=== PATIENT | male | born 1965 | race Hispanic/Latino ===

== ENCOUNTER 2019-03-19 19:38 | Observation (INO) | payer SELFPAY ==
[2019-03-19 20:38] LABS: Absolute Lymphocytes (CBC) 1.8 K/uL (0.7-4.9); Basophils % 0.2 % (0-1.3); Hematocrit 45.8 % (39.6-49.0); Lymphocytes % 16.4 % (15.3-44.8); MPV 10.3 fL (7.6-11.3); RBC Red Blood Cell Count 4.99 M/uL (4.33-5.43)
--- NOTE | 2019-03-19 20:38 | RAD REPORT ---
EXAM DESCRIPTION: RAD - Chest Single View - 03/19/2019 8:29 pm CLINICAL HISTORY: CHEST PAIN Chest pain. COMPARISON: No comparisons FINDINGS: Portable technique limits examination quality. The lungs are grossly clear. The heart is normal in size. No displaced fractures. IMPRESSION: No acute intrathoracic process suspected.
[2019-03-19 20:39] LABS: Protime INR 1.05
[2019-03-19] MEDS ORDERED: ASPIRIN 81 MG CHEWABLE TABLET ONE (20:41)
[2019-03-19 20:53] LABS: ALT/SGPT 77 U/L (12-78); AST/SGOT 40 U/L (15-37); Albumin 4.5 g/dL (3.4-5.0); Alkaline Phosphatase 73 U/L (45-117); BUN Blood Urea Nitrogen 14 mg/dL (7-18); Bicarbonate 25 mmol/L (21-32); Bilirubin Direct 0.1 mg/dL (0-0.2); Bilirubin Total 0.6 mg/dL (0.2-1.0); Glucose Level 105 mg/dL (74-106); Magnesium 2.2 mg/dL (1.8-2.4); NT PRO-BNP 11 pg/mL (<125); Protein, Total 8.2 g/dL (6.4-8.2); Sodium Level 141 mmol/L (136-145); Troponin (Emerg Dept Use Only) < 0.02 ng/mL (0.0-0.045)
[2019-03-19] MEDS ORDERED: NITROGLYCERIN 0.4 MG/TAB SL ONE (21:56)
--- NOTE | 2019-03-19 22:46 | EDPHYS ---
Physician Documentation [facility] Name: Jin Schmidt Age: 53 yrs Sex: Male : 1965 Arrival Date: 03/19/2019 Time: 19:41 Bed 7 Private MD: ED Physician Paulo Kaiser HPI: 03/19 20:10 This 53 yrs old Male presents to ER via Ambulatory with complaints of High cp Blood Pressure. 20:10 The patient or guardian reports chest pain that is located primarily in the anterior cp chest wall, left. 20:10 Onset: today, while at work. cp 20:10 The pain does not radiate. Associated signs and symptoms: Pertinent negatives: cp abdominal pain, diaphoresis, dizziness, lower extremity pain, lower extremity swelling, shortness of breath, syncope, vomiting. Duration: The patient or guardian reports a single episode, that is still ongoing, and unchanged. Severity of pain: in the emergency department the pain is a 5 / 10. Historical: - Allergies: 19:51 No Known Allergies; aj1 - Home Meds: 19:51 Enalapril Oral [Active]; aj1 - PMHx: 19:51 Hypertension; aj1 - Immunization history:: Flu vaccine is not up to date. - Social history:: Smoking status: Patient/guardian denies using tobacco. - Ebola Screening: : Patient denies travel to an Ebola-affected area in the 21 days before illness onset. ROS: 20:15 Constitutional: Negative for body aches, chills, fever, poor PO intake. cp 20:15 Eyes: Negative for injury, pain, redness, and discharge. cp 20:15 ENT: Negative for drainage from ear(s), ear pain, sore throat, difficulty swallowing, difficulty handling secretions. 20:15 Cardiovascular: Positive for chest pain, of the left side of chest, Negative for edema, palpitations. 20:15 Respiratory: Negative for cough, shortness of breath, wheezing. 20:15 Abdomen/GI: Negative for abdominal pain, nausea, vomiting, and diarrhea, black/tarry stool, rectal bleeding. 20:15 Back: Negative for pain at rest, pain with movement, radiated pain. 20:15 : Negative for urinary symptoms. 20:15 Skin: Negative for rash. 20:15 Neuro: Negative for altered mental status, headache, syncope, weakness. 20:15 All other systems are negative. Exam: 20:22 Constitutional: The patient appears in no acute distress, alert, awake, cp non-diaphoretic, non-toxic, well developed, well nourished. 20:22 Head/Face: Normocephalic, atraumatic. cp 20:22 Eyes: Periorbital structures: appear normal, Conjunctiva: normal, no exudate, no injection, Sclera: no appreciated abnormality, Lids and lashes: appear normal, bilaterally. 20:22 ENT: External ear(s): are unremarkable, Nose: is normal, Mouth: is normal, Posterior pharynx: is normal, airway is patent, no erythema, no exudate. 20:22 Neck: ROM/movement: is normal, is supple, without pain, no range of motions limitations, no nuchal rigidity. 20:22 Chest/axilla: Inspection: normal, Palpation: is normal, no crepitus, no tenderness. 20:22 Cardiovascular: Rate: tachycardic, Rhythm: regular, Pulses: Pulses are 2+ in right radial artery and left radial artery. Heart sounds: murmur, not appreciated, rub, not appreciated, gallop, not appreciated, Edema: is not appreciated, JVD: is not appreciated. 20:22 Respiratory: the patient does not display signs of respiratory distress, Respirations: normal, no use of accessory muscles, no retractions, no splinting, no tachypnea, labored breathing, is not present, Breath sounds: are clear throughout, no decreased breath sounds, no stridor, no wheezing. 20:22 Abdomen/GI: Inspection: abdomen appears normal, Bowel sounds: active, all quadrants, Palpation: abdomen is soft and non-tender, in all quadrants, rebound tenderness, is not appreciated, voluntary guarding, is not appreciated, involuntary guarding, is not appreciated. 20:22 Back: pain, is absent, ROM is normal. 20:22 Skin: no rash present. 20:22 Neuro: Orientation: to person, place \T\ time. Mentation: is normal, Cerebellar function: is grossly normal, Motor: moves all fours, strength is normal, Sensation: is normal. 20:45 ECG was reviewed by the Attending Physician. cp Vital Signs: 19:51 BP 140 / 77; Pulse 101; Resp 20; Temp 98.9; Pulse Ox 98% on R/A; Weight 81.65 kg (R); aj1 Height 5 ft. 4 in. (162.56 cm) (R); Pain 5/10; 21:05 BP 139 / 93; Pulse 97; Resp 19 S; Pulse Ox 97% on R/A; Pain 5/10; jd3 21:43 BP 143 / 94; Pulse 90; Resp 18 S; Pulse Ox 97% on R/A; Pain 7/10; jd3 23:09 BP 135 / 93; Pulse 82; Resp 17 S; Pulse Ox 97% on R/A; Pain 4/10; jd3 03/20 01:05 BP 118 / 77; Pulse 69; Resp 16 S; Pulse Ox 95% on R/A; Pain 0/10; jd3 03/19 19:51 Body Mass Index 30.90 (81.65 kg, 162.56 cm) aj1 MDM: 03/19 20:02 Patient medically screened. cp 22:37 HEART Score: History: Moderately Suspicious (1), ECG: Normal (0), Age: > 45 and < 65 cp years (1), Risk Factors: 1 or 2 risk factors (1), [Hypertension] Troponin: < or = 1 x Normal Limit (0). 22:43 Counseling: I had a detailed discussion with the patient and/or guardian regarding: the cp historical points, exam findings, and any diagnostic results supporting the discharge/admit diagnosis, lab results, radiology results. Physician consultation: Leydi Vanegas MD was called at 22:44, was contacted at 22:44, regarding admission, to the telemetry unit. patient's condition. 22:45 The patient was given aspirin in the Emergency Department. cp 22:45 Differential diagnosis: abnormal EKG, acute myocardial infarction, chest wall pain, cp pleurisy, pneumonia, pneumothorax. Data reviewed: vital signs, nurses notes, lab test result(s), EKG, radiologic studies, plain films. Test interpretation: by ED physician or midlevel provider: ECG, plain radiologic studies. 03/19 20:03 Order name: Basic Metabolic Panel; Complete Time: 21:38 cp 03/19 22:35 Interpretation: GFR 76. cp 03/19 20:03 Order name: CBC with Diff; Complete Time: 21:38 cp 03/19 22:33 Interpretation: Normal except: WBC 11.0; LOUIS% 76.9; NEUT A 8.5. cp 03/19 20:03 Order name: LFT's; Complete Time: 21:38 cp 03/19 22:33 Interpretation: Normal except: AST 40; GLOB 3.7. cp 03/19 20:03 Order name: Magnesium; Complete Time: 21:38 cp 03/19 20:03 Order name: NT PRO-BNP; Complete Time: 21:38 cp 03/19 20:03 Order name: PT-INR; Complete Time: 21:38 cp 03/19 20:03 Order name: Troponin (emerg Dept Use Only); Complete Time: 21:38 cp 03/19 20:03 Order name: XRAY Chest (1 view); Complete Time: 21:38 cp 03/20 00:16 Order name: Echo with Doppler EDNV 03/20 00:16 Order name: Lipid Profile [facility] 03/20 00:16 Order name: Troponin I [facility] 03/19 20:03 Order name: EKG; Complete Time: 20:05 cp 03/19 20:03 Order name: Cardiac monitoring; Complete Time: 20:34 cp 03/19 20:03 Order name: EKG - Nurse/Tech; Complete Time: 20:34 cp 03/19 20:03 Order name: IV Saline Lock; Complete Time: 20:30 cp 03/19 20:03 Order name: Labs collected and sent; Complete Time: 20:30 cp 03/19 20:03 Order name: O2 Per Protocol; Complete Time: 20:04 cp 03/19 20:03 Order name: O2 Sat Monitoring; Complete Time: 20:04 cp 03/20 00:16 Order name: Heart Healthy EDNV 03/20 00:16 Order name: EKG Electrocardiogram EDNV 03/20 00:16 Order name: EKG Electrocardiogram EDMS EC:45 Rate is 88 beats/min. Rhythm is regular. NH interval is normal. QRS interval is cp prolonged at 108 msec. QT interval is normal. T waves are Inverted in lead III. Interpreted by me. Reviewed by me. Administered Medications: 20:28 Drug: Aspirin Chewable Tablet 324 mg {Note: pt reported taking 0.5 tablet of a chewable jd3 aspirin. pt medicated wiht 3.5 tabs of chewable aspirin per provider's order..} Route: PO; 21:25 Follow up: Response: No adverse reaction jd3 21:43 Drug: Nitroglycerin 0.4 mg Route: Sublingual; jd3 22:40 Follow up: Response: No adverse reaction jd3 22:51 Drug: fentaNYL (PF) 25 mcg Route: IVP; Site: right antecubital; jd3 23:50 Follow up: Response: No adverse reaction jd3 Disposition: 03/20 05:58 Co-signature as Attending Physician, Paulo Kaiser MD I agree with the assessment and kdr plan of care. Disposition: 03/19/19 22:46 Hospitalization ordered by Leydi Vanegas for Observation. Preliminary diagnosis is Chest pain, unspecified. - Bed requested for Telemetry/MedSurg (observation). - Status is Observation. rv - Condition is Stable. - Problem is new. - Symptoms have improved. UTI on Admission? No Signatures: Dispatcher [employer] EDMS Suzette Pardo RN RN ajPaulo Dove MD MD kdr Melinda Parmar RN RN bb Cory Luna PA PA cp Shamar Hyatt RN RN jZaheer Seth RN RN rv Corrections: (The following items were deleted from the chart) 03/19 22:33 21:38 Normal except: WBC 11.0. cp cp 03/20 00:37 03/19 22:46 Hospitalization Ordered by Leydi Vanegas MD for Observation. Preliminary bb diagnosis is Chest pain, unspecified. Bed requested for Telemetry/MedSurg (observation). Status is Observation. Condition is Stable. Problem is new. Symptoms have improved. UTI on Admission? No. cp 03/20 01:30 00:37 03/19/2019 22:46 Hospitalization Ordered by Leydi Vanegas MD for Observation. rv Preliminary diagnosis is Chest pain, unspecified. Bed requested for Telemetry/MedSurg (observation). Status is Observation. Condition is Stable. Problem is new. Symptoms have improved. UTI on Admission? No. bb
--- NOTE | 2019-03-19 22:46 | ER ---
Nurse's Notes [facility] Name: Jin Schmidt Age: 53 yrs Sex: Male : 1965 Arrival Date: 03/19/2019 Time: 19:41 Bed 7 Private MD: Diagnosis: Chest pain, unspecified Presentation: 03/19 19:50 Presenting complaint: Friend states: "He was at work and he said that he felt like his aj1 blood pressure was high, so we took him to the clinic, they said his blood pressure was high and asked us to take him to the ER". Transition of care: patient was not received from another setting of care. Onset of symptoms was March 19, 2019. Risk Assessment: Do you want to hurt yourself or someone else? Patient reports no desire to harm self or others. Initial Sepsis Screen: Does the patient meet any 2 criteria? No. Patient's initial sepsis screen is negative. Does the patient have a suspected source of infection? No. Patient's initial sepsis screen is negative. Care prior to arrival: None. 19:50 Method Of Arrival: Ambulatory aj 19:50 Acuity: COLT 3 aj1 Triage Assessment: 19:51 General: Appears in no apparent distress. uncomfortable, Behavior is calm, cooperative, aj1 appropriate for age. Pain: Complains of pain in chest Pain currently is 5 out of 10 on a pain scale. Neuro: Level of Consciousness is awake, alert, obeys commands. Cardiovascular: Patient's skin is warm and dry. Respiratory: Airway is patent Respiratory effort is even, unlabored, Respiratory pattern is regular, symmetrical. Historical: - Allergies: 19:51 No Known Allergies; aj1 - Home Meds: 19:51 Enalapril Oral [Active]; aj1 - PMHx: 19:51 Hypertension; aj1 - Immunization history:: Flu vaccine is not up to date. - Social history:: Smoking status: Patient/guardian denies using tobacco. - Ebola Screening: : Patient denies travel to an Ebola-affected area in the 21 days before illness onset. Screenin:33 Abuse screen: Denies threats or abuse. Nutritional screening: No deficits noted. jd3 Tuberculosis screening: No symptoms or risk factors identified. Fall Risk IV access (20 points). Ambulatory Aid- None/Bed Rest/Nurse Assist (0 pts). Gait- Normal/Bed Rest/Wheelchair (0 pts) Mental Status- Oriented to own ability (0 pts). Total Veloz Fall Scale indicates No Risk (0-24 pts). Assessment: 20:30 General: Appears in no apparent distress. uncomfortable, Behavior is calm, cooperative, jd3 appropriate for age. Pain: Complains of pain in chest Pain does not radiate. Quality of pain is described as heavy, pressure, Is continuous. Neuro: Level of Consciousness is awake, alert, obeys commands, Oriented to person, place, time, situation. Cardiovascular: Reports chest pain, Heart tones S1 S2 present Capillary refill < 3 seconds Patient's skin is warm and dry. Rhythm is. Respiratory: Airway is patent Respiratory effort is even, unlabored, Respiratory pattern is regular, symmetrical, Breath sounds are clear bilaterally. Denies cough, shortness of breath. GI: No signs and/or symptoms were reported involving the gastrointestinal system. : No signs and/or symptoms were reported regarding the genitourinary system. EENT: No signs and/or symptoms were reported regarding the EENT system. Derm: Skin is intact, Skin is dry, Skin is normal, Skin temperature is warm. Musculoskeletal: Circulation, motion, and sensation intact. Range of motion: intact in all extremities. 21:05 Reassessment: Patient appears in no apparent distress at this time. Patient and/or jd3 family updated on plan of care and expected duration. Pain level reassessed. Patient is alert, oriented x 3, equal unlabored respirations, skin warm/dry/pink. 21:43 Reassessment: Patient appears in no apparent distress at this time. No changes from jd3 previously documented assessment. Patient and/or family updated on plan of care and expected duration. Pain level reassessed. Patient is alert, oriented x 3, equal unlabored respirations, skin warm/dry/pink. 23:09 Reassessment: Patient appears in no apparent distress at this time. Patient and/or jd3 family updated on plan of care and expected duration. Pain level reassessed. Patient is alert, oriented x 3, equal unlabored respirations, skin warm/dry/pink. Patient states feeling better. 03/20 00:00 Reassessment: Patient appears in no apparent distress at this time. No changes from jd3 previously documented assessment. Patient and/or family updated on plan of care and expected duration. Pain level reassessed. Patient is alert, oriented x 3, equal unlabored respirations, skin warm/dry/pink. 01:00 Reassessment: Patient appears in no apparent distress at this time. No changes from jd3 previously documented assessment. Patient and/or family updated on plan of care and expected duration. Pain level reassessed. Patient is alert, oriented x 3, equal unlabored respirations, skin warm/dry/pink. report given to Arelis CACERES. Vital Signs: 03/19 19:51 BP 140 / 77; Pulse 101; Resp 20; Temp 98.9; Pulse Ox 98% on R/A; Weight 81.65 kg (R); aj1 Height 5 ft. 4 in. (162.56 cm) (R); Pain 5/10; 21:05 BP 139 / 93; Pulse 97; Resp 19 S; Pulse Ox 97% on R/A; Pain 5/10; jd3 21:43 BP 143 / 94; Pulse 90; Resp 18 S; Pulse Ox 97% on R/A; Pain 7/10; jd3 23:09 BP 135 / 93; Pulse 82; Resp 17 S; Pulse Ox 97% on R/A; Pain 4/10; jd3 03/20 01:05 BP 118 / 77; Pulse 69; Resp 16 S; Pulse Ox 95% on R/A; Pain 0/10; jd3 03/19 19:51 Body Mass Index 30.90 (81.65 kg, 162.56 cm) aj1 ED Course: 03/19 19:41 Patient arrived in ED. es 19:46 Cory Luna PA is PHCP. cp 19:46 Paulo Kaiser MD is Attending Physician. cp 19:51 Triage completed. aj1 19:51 Arm band placed on Patient placed in an exam room. aj1 20:02 Shamar Hyatt, MORRIS is Primary Nurse. jd3 20:20 Inserted saline lock: 20 gauge in right antecubital area, using aseptic technique. jd3 Blood collected. 20:29 XRAY Chest (1 view) In Process Unspecified. EDMS 20:34 Patient has correct armband on for positive identification. Placed in gown. Bed in low jd3 position. Call light in reach. Side rails up X 1. Adult w/ patient. 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 Pulse ox on. NIBP on. jd3 20:40 EKG done, by ED staff, reviewed by Cory SHAFER. jp3 22:46 Leydi Vanegas MD is Hospitalizing Provider. 03/20 01:01 No provider procedures requiring assistance completed. Patient did not have IV access jd3 during this emergency room visit. Administered Medications: 03/19 20:28 Drug: Aspirin Chewable Tablet 324 mg {Note: pt reported taking 0.5 tablet of a chewable jd3 aspirin. pt medicated wiht 3.5 tabs of chewable aspirin per provider's order..} Route: PO; 21:25 Follow up: Response: No adverse reaction jd3 21:43 Drug: Nitroglycerin 0.4 mg Route: Sublingual; jd3 22:40 Follow up: Response: No adverse reaction jd3 22:51 Drug: fentaNYL (PF) 25 mcg Route: IVP; Site: right antecubital; jd3 23:50 Follow up: Response: No adverse reaction jd3 Outcome: 22:46 Decision to Hospitalize by Provider. 03/20 01:06 Admitted to Tele accompanied by nurse, via wheelchair, room 221, with chart, Report jd3 called to Arelis CACERES Condition: stable Instructed on the need for admit, Demonstrated understanding of instructions. 01:30 Patient left the ED. rv Signatures: Dispatcher [employer] Suzette Paz, RN RN aj1 Farida Branch Corey, PA PA cp Shamar Hyatt RN RN jd3 Zaheer Garibay RN RN rv Abdi Chambers jp3 Corrections: (The following items were deleted from the chart) 01:07 01:00 Reassessment: Patient appears in no apparent distress at this time. No changes jd3 from previously documented assessment. Patient and/or family updated on plan of care and expected duration. Pain level reassessed. Patient is alert, oriented x 3, equal unlabored respirations, skin warm/dry/pink. jd3 01:21 01:06 Admitted to Tele accompanied by tech, via wheelchair, room 221, with chart, jd3 Report called to Arelis CACERES jnaomi
[2019-03-19] MEDS ORDERED: FENTANYL CITR 100 MCG/2 ML ONE (23:03)
[2019-03-20] MEDS ORDERED: ALPRAZOLAM 0.25 MG TABLET PO PRN (00:06)
[2019-03-20] MEDS ORDERED: MORPHINE 4 MG/ML SYR IV PRN (00:06)
[2019-03-20] MEDS ORDERED: ACETAMINOPHEN 500 MG TAB PO PRN (00:06)
[2019-03-20] MEDS ORDERED: ENOXAPARIN 40 MG/0.4 ML SQ SCH (09:00)
[2019-03-20] MEDS ORDERED: METOPROLOL TAR 50 MG TAB PO SCH (09:00)
[2019-03-20] MEDS ORDERED: ASPIRIN EC 81 MG TAB PO SCH (09:00)
--- NOTE | 2019-03-20 09:36 | EKG ---
Test Date: 2019-03-19 Test Time: 20:35:40 Marine Photographer: ISELA MEASUREMENT RESULTS: Intervals: Rate: 88 AK: 180 QRSD: 108 QT: 374 QTc: 452 Sidney: P: 28 AK: 180 QRS: 52 T: 29 INTERPRETIVE STATEMENTS: Normal sinus rhythm Normal ECG No previous ECG available for comparison Electronically Signed On 03-20-19 09:35:38 CDT by Bryan Watters
--- NOTE | 2019-03-20 23:44 | P.HP ---
Certification for Inpatient Patient admitted to: Observation With expected LOS: <2 Midnights Patient will require the following post-hospital care: None Practitioner: I am a practitioner with admitting privileges, knowledge of patient current condition, hospital course, and medical plan of care. Services: Services provided to patient in accordance with Admission requirements found in Title 42 Section 412.3 of the Code of Federal Regulations Patient History Date of Service: 03/20/19 Reason for admission: CP r/o History of Present Illness: Patient is a 53-year-old gentleman who came to the hospital with chest pain. He had been working and he noticed that his blood pressure was elevated. They took him to a nearby clinic where his blood pressure was 180s over 90s. He was feeling some chest tightness. He had some shortness of breath associated with it. No nausea no vomiting and he was little diaphoretic. He came to the emergency room for further evaluation. In the ER they gave him antihypertensives which lowered his blood pressure. His chest pain completely resolved. He denies any complaints at this time. He feels much better. His EKG did not reveal any acute abnormality. He will be admitted to the hospital for cardiology consultation and serial troponins and EKG. If his workup is negative anticipate discharge home with outpatient follow-up for stress testing. Allergies No Known Allergies Allergy (Unverified 03/20/19 02:21) Home Medications: Enalapril Maleate [Vasotec] 1 tab PO DAILY 03/20/19 - Past Medical/Surgical History Has patient received pneumonia vaccine in the past: Yes Diabetic: No -: HTN Past Surgical History: Patient denies surgical history - Family History Father Family History: Reviewed- Non-Contributory - Social History Smoking Status: Never smoker Alcohol use: No CD- Drugs: No Caffeine use: No Place of Residence: Home Review of Systems 10-point ROS is otherwise unremarkable Physical Examination - Vital Signs Temperature: 97.6 F Blood Pressure: 137/86 Pulse: 80 Respirations: 17 Pulse Ox (%): 96 - Physical Exam General: Alert, In no apparent distress, Oriented x3 HEENT: Atraumatic, PERRLA, Mucous membr. moist/pink, EOMI, Sclerae nonicteric Neck: Supple, 2+ carotid pulse no bruit, No LAD, Without JVD or thyroid abnormality Respiratory: Clear to auscultation bilaterally, Normal air movement Cardiovascular: Regular rate/rhythm, Normal S1 S2, No murmurs Gastrointestinal: Normal bowel sounds, Soft and benign, Non-distended, No tenderness Musculoskeletal: No clubbing, No swelling, No contractures, No tenderness Integumentary: No rashes Neurological: Normal gait, Normal speech, Normal strength at 5/5 x4 extr, Normal tone, Sensation intact, Cranial nerves 3-12 intact, Normal affect Lymphatics: No axilla or inguinal lymphadenopathy Assessment & Plan - Problems (Diagnosis) (1) Chest pain, rule out acute myocardial infarction Status: Acute (2) Poorly-controlled hypertension Status: Acute - Plan 1. Serial troponins and EKG 2. Cardiology consultation 3. Echocardiogram and stress test as an outpatient for workup is negative 4. Anti-platelet therapy, beta-helena, statin, and O2 as needed 5. IV morphine for pain 6. Nitro p.r.n. Discharge Plan: Home Plan to discharge in: 24 Hours - Advance Directives Does patient have a Living Will: No Does patient have a Durable POA for Healthcare: No - Code Status/Comfort Care Code Status Assessed: Yes Code Status: Full Code Critical Care: No Time Spent Managing PTS Care (In Minutes): 45
== END 2019-03-20 15:06 | disposition home or self-care (01) ==
LOC: ER 19:38 → ERHOLD 03-20 00:07 → 2ND 03-20 01:16
PROVIDERS: ADMIT Hospitalist; ATTEND Hospitalist
DX: R07.9 Chest pain, unspecified (principal); I10 Essential (primary) hypertension; Z79.899 Other long term (current) drug therapy
CPT/HCPCS: 36415; 71045; 80048; 80061; 80076; 83735; 83880; 84484; 85025; 85610; 93005; 96374; 99285; G0378; J1650; J3010